=== PATIENT | female | born 1995 | race Caucasian/White ===

== ENCOUNTER 2018-01-06 14:19 | Emergency (ER) | payer SELFPAY ==
[2018-01-06] MEDS ORDERED: IBUPROFEN 600 MG TABLET PO ONE (14:26)
--- NOTE | 2018-01-06 14:27 | Emergency Department Record ---
History of Present Illness - General Chief complaint: Female Urogenital Problem Stated complaint: PEEING GLASS/BACK PAIN Time Seen by Provider: 01/06/18 14:23 Source: Patient Mode of Arrival: Ambulatory Limitations: No limitations - History of Present Illness Initial comments: 22 yo female presents with pain with urination that started today. She has had a thick yellow discharge in her vaginal for a few weeks with odor. She has spotting bleeding on and off. Her cycles tend to be irregular. No fevers. No sores or external lesions. No fever, vomiting. The pain occurs with voiding. MD Complaint: Dysuria, Possible STD, Vaginal bleeding, Vaginal discharge -: Days(s) Location: Perineum Severity: Moderate Improves with: None Worsens with: Urination Associated Symptoms: Dysuria - Related Data Previous Rx's Medication Instructions Recorded Metronidazole [Flagyl] 500 mg PO TID #21 tablet 01/06/18 Nitrofurantoin Monohyd/M-Cryst 100 mg PO BID #14 capsule 01/06/18 [Macrobid 100 mg Capsule] Allergies Allergy/AdvReac Type Severity Reaction Status Date / Time cephalexin [From Keflex] Allergy HIVES Verified 01/06/18 14:31 risperidone [From Risperdal] Allergy HYPERSENSIT Verified 01/06/18 14:31 IVITY Review of Systems Constitutional: Denies: Chills, Fever, Malaise, Weakness Eyes: Denies: Eye discharge ENT: Denies: Congestion, Throat pain Respiratory: Denies: Cough, Dyspnea Cardiovascular: Denies: Chest pain, Palpitations, Syncope Endocrine: Denies: Fatigue Gastrointestinal: Reports: As per HPI, Abdominal pain. Denies: Diarrhea, Nausea , Vomiting Genitourinary: Reports: Abnormal menses, Discharge, Dyspareunia, Dysuria, Frequency, Urgency. Denies: Hematuria, Retention Musculoskeletal: Reports: Back pain (mild). Denies: Arthralgia, Myalgia Skin: Denies: Bruising, Change in color, Rash Neurological: Denies: Headache, Numbness, Tremors, Weakness Psychiatric: Denies: Anxiety Hematological/Lymphatic: Denies: Blood Clots, Easy bleeding, Easy bruising Physical Exam - General General Appearance: Alert, Oriented x3, Cooperative, No acute distress Limitations: No limitations - Head Head exam: Atraumatic, Normal inspection - Eye Eye exam: Normal appearance. negative: Conjunctival injection, Scleral icterus - ENT ENT exam: Normal exam Ear exam: Normal external inspection Nasal Exam: Normal inspection Mouth exam: Normal external inspection - Neck Neck exam: Normal inspection, Full ROM. negative: Tenderness - Respiratory Respiratory exam: Normal lung sounds bilaterally. negative: Respiratory distress - Cardiovascular Cardiovascular Exam: Regular rate, Normal rhythm, Normal heart sounds - GI/Abdominal GI/Abdominal exam: Soft, Tenderness (mild suprpubic). negative: Hypoactive bowel sounds - Rectal Rectal exam: Deferred - exam: Abnormal external exam (thick yellow discharge), Adnexal tenderness (L) , Adnexal tenderness (R), Vaginal discharge. negative: Adnexal mass (L), Adnexal mass (R), Cervical discharge, Normal bimanual exam, Vaginal bleeding, Vaginal erythema - Extremities Extremities exam: Normal inspection - Back Back exam: Reports: Full ROM. Denies: CVA tenderness (R), CVA tenderness (L), Muscle spasm, Tenderness, Vertebral tenderness - Neurological Neurological exam: Alert, Oriented X3. negative: Altered - Psychiatric Psychiatric exam: Normal affect, Normal mood - Skin Skin exam: Dry, Intact, Normal color, Warm Course - Reevaluation(s) Reevaluation #1: 01/06/18 15:01 The discharge is significant with a medium yellow color. She has mild bilateral adnexal tenderness with out significant CMT I recommend prophylactic treatment for STD as this is suspicious She is in agreement. The patient has a hives allergy to Cephalosporins. Per the [place] guide Gentamycin 240mg IM is the alternative for gonorrhea with an allergy. 01/06/18 15:06 UA with mild finding for UTI The Wet prep demonstrated clue cells HCG is negative 01/06/18 15:09 We discussed the results, follow up and home care. No intercourse until cleared and completed antibiotics 01/06/18 15:49 Disposition Disposition: Discharge Clinical Impression: Pelvic pain, Urinary tract infection, Bacterial vaginosis Disposition: Home, Self-Care Condition: (1) Good Instructions: Bacterial Vaginosis (ED), Urinary Tract Infection in Women (ED) Additional Instructions: Call your doctor for follow up of this ER visit I recommend a yearly PAP Smear with your doctor Take the antibiotics as directed Prescriptions: Metronidazole [Flagyl] 500 mg PO TID #21 tablet Nitrofurantoin Monohyd/M-Cryst [Macrobid 100 mg Capsule] 100 mg PO BID #14 capsule Forms: Patient Portal Access Time of Disposition: 15:09 Quality - Quality Measures Quality Measures: N/A - Blood Pressure Screening Does Patient Have Any of the Following: No Blood Pressure Classification: Pre-Hypertensive BP Reading Systolic Measurement: 142 Diastolic Measurement: 82 Screening for High Blood Pressure: < Pre-Hypertensive BP, F/U Documented > [ [id number]] Pre-Hypertensive Follow-up Interventions: Referral to alternative/primary care provider.
[2018-01-06 14:37] LABS: URINE APPEARANCE CLEAR; URINE BILIRUBIN NEGATIVE (NEGATIVE); URINE BLOOD TRACE-I (NEGATIVE); URINE COLOR YELLOW; URINE GLUCOSE (UA) NEGATIVE (NEGATIVE); URINE KETONE 15 mg/dL (NEGATIVE); URINE LEUKOCYTE ESTERASE SMALL (NEGATIVE); URINE NITRITE NEGATIVE (NEGATIVE); URINE PROTEIN NEGATIVE (NEGATIVE)
[2018-01-06] MEDS ORDERED: AZITHROMYCIN 500 MG TABLET PO ONE (14:47)
[2018-01-06 14:49] LABS: HCG,QUALITATIVE URINE NEGATIVE (NEGATIVE); URINE BACTERIA FEW; URINE WBC 16 - 20 (0-2/hpf)
[2018-01-06] MEDS ORDERED: GENTAMICIN SULFATE 40 MG/ML VIAL IM ONE (14:56)
[2018-01-06] MEDS ORDERED: METRONIDAZOLE 250 MG TABLET PO ONE (15:06)
[2018-01-08 20:29] LABS: GC SPECIMEN TYPE Vaginal
== END 2018-01-06 15:39 | disposition home or self-care (01) ==
LOC: ER 14:19
DX: N39.0 Urinary tract infection, site not specified (principal); N76.0 Acute vaginitis; R10.2 Pelvic and perineal pain; F17.210 Nicotine dependence, cigarettes, uncomplicated
CPT/HCPCS: 99284 ×2; 96372; 81001; 81025; Q0111; 87210; J1580